=== PATIENT | male | born 1960 | race Asian ===

== ENCOUNTER 2019-04-02 14:58 | Emergency (ER) | payer BC ==
[~2019-04-02] VITALS: Ht 170.2 cm; Wt 72.6 kg
[2019-04-02 15:17] VITALS: BP_SYST 108
--- NOTE | 2019-04-02 15:41 | NUR ---
Patient to ER bed 6 to gown for evaluation. Side rails up. Assumed care.
--- NOTE | 2019-04-02 15:42 | NUR ---
Patient arrived via POV, AAOx4, and ambulatory with steady gait. C/C intermittent abdominal pain. Pain is moderate in intensity, becomes slightly worse with food intake. The patient reports having mild vomiting provoked when he has a full stomach. The patient denies any specific alleviating factors. Pain does not radiate to the back. This pain has been ongoing for the past 2 years. However, for the past months the pain has been increasing in frequency and intensity. The patient was seen by his PCP 4 months ago and was told his lab work and abdominal x-rays were within normal. Otherwise, he denies fever, chills, diarrhea, shortness of breath, chest pain, history of kidney problems or any urinary symptoms. Patient calm and cooperative pain at 7/10 currently. Will continue to follow up and monitor.
--- NOTE | 2019-04-02 15:43 | NUR ---
ER at bedside examining patient.
--- NOTE | 2019-04-02 15:54 | NUR ---
Patient taken to CT via gurney.
[2019-04-02 16:10] LABS: BASOPHILS # (AUTO) 0.1 K/uL (0.0-0.2); BASOPHILS % (AUTO) 0.7 % (0.0-2.0); EOSINOPHILS # (AUTO) 0.2 K/uL (0.0-0.4); EOSINOPHILS % (AUTO) 1.4 % (0.0-4.0); HEMATOCRIT 45.8 % (36-54); HEMOGLOBIN 15.4 g/dL (14.0-18.0); LYMPHOCYTES % (AUTO) 25.1 % (20.5-51.5); MEAN CORPUSCULAR HEMOGLOBIN 31 pg (27-31); MEAN CORPUSCULAR HGB CONC 34 % (32-36); MEAN CORPUSCULAR VOLUME 92 fL (79.0-98.0); MONOCYTES # (AUTO) 0.7 K/uL (0.0-1.0); MONOCYTES % (AUTO) 5.6 % (1.7-9.3); NEUTROPHILS % (AUTO) 67.2 % (40.0-70.0); PLATELET COUNT (AUTO) 238 K/uL (130-430); RED BLOOD CELL COUNT(AUTO) 4.97 MIL/uL (4.2-6.2); RED CELL DISTRIBUTION WIDTH 12.9 % (9.0-15.0); WHITE BLOOD COUNT (AUTO) 11.9 K/uL (4.8-10.8)
--- NOTE | 2019-04-02 16:15 | NUR ---
Patient arrived back to room via gurney. Patient in stable condition. Will continue to follow up and monitor.
[2019-04-02 16:23] LABS: CALCIUM 9.5 mg/dL (8.4-11.0); CREATININE 0.92 mg/dL (0.55-1.30); POTASSIUM 4.3 mmol/L (3.5-5.1)
[2019-04-02 16:27] LABS: TOTAL BILIRUBIN 0.8 mg/dL (0.0-1.0)
--- NOTE | 2019-04-02 17:15 | NUR ---
Patient resting comfortably. Aware we are waiting for results of labs and CT then MD to meet with him.
[2019-04-02] MEDS ORDERED: MAG HYDROX/AL HYDROX/SIMETH 30 ML, DICYCLOMINE HCL 20 MG, LIDOCAINE VISCOUS 2% 15ML (PO... PO ONE ×3 (18:15)
[2019-04-02 18:20] VITALS: BP_SYST 114
--- NOTE | 2019-04-02 18:20 | NUR ---
Patient given written and verbal discharge instructions and verbalizes understanding. ER MD discussed with patient the results and treatment provided. Patient in stable condition. ID arm band removed. Rx of Protonix given. Patient educated on pain management and to follow up with PMD. Pain Scale 5/10. Opportunity for questions provided and answered. Medication side effect fact sheet provided.
== END 2019-04-02 18:20 | disposition home or self-care (01) ==
LOC: SED 14:58
DX: R10.9 Unspecified abdominal pain (principal); E11.9 Type 2 diabetes mellitus without complications
CPT/HCPCS: 74176; 36415; 80053; 83690; 85025; 99284; J2001

== ENCOUNTER 2020-05-26 07:37 | Inpatient (IN) | payer BC, SELFPAY ==
[~2020-05-26] VITALS: Ht 172.7 cm; Wt 70.8 kg
[2020-05-26 07:37] VITALS: BP_SYST 99
[2020-05-26] MEDS ORDERED: ASPIRIN 81 MG TAB.CHEW PO ONE (07:45)
[2020-05-26 08:06] LABS: BASOPHILS # (AUTO) 0.1 K/uL (0.0-0.2); BASOPHILS % (AUTO) 0.3 % (0.0-2.0); EOSINOPHILS % (AUTO) 0.1 % (0.0-4.0); HEMATOCRIT 45.1 % (36-54); HEMOGLOBIN 15.2 g/dL (14.0-18.0); LYMPHOCYTES # (AUTO) 1.8 K/uL (1.0-5.5); LYMPHOCYTES % (AUTO) 9.1 % (20.5-51.5); MEAN CORPUSCULAR HEMOGLOBIN 30 pg (27-31); MEAN CORPUSCULAR HGB CONC 34 % (32-36); MEAN CORPUSCULAR VOLUME 90 fL (79.0-98.0); MONOCYTES # (AUTO) 1.3 K/uL (0.0-1.0); MONOCYTES % (AUTO) 6.5 % (1.7-9.3); NEUTROPHILS # (AUTO) 16.3 K/uL (1.8-7.7); PLATELET COUNT (AUTO) 216 K/uL (130-430); RED BLOOD CELL COUNT(AUTO) 4.99 MIL/uL (4.2-6.2); RED CELL DISTRIBUTION WIDTH 13.1 % (9.0-15.0); WHITE BLOOD COUNT (AUTO) 19.4 K/uL (4.8-10.8)
[2020-05-26 08:15] LABS: CALCIUM 9.2 mg/dL (8.4-11.0); CREATININE 1.18 mg/dL (0.55-1.30); POTASSIUM 4.2 mmol/L (3.5-5.1)
[2020-05-26] MEDS ORDERED: NACL 0.9% 1,000 ML IV ONE ×4 (08:15→10:15)
[2020-05-26 08:30] LABS: ALBUMIN 3.8 g/dL (3.4-4.8); TOTAL BILIRUBIN 1.3 mg/dL (0.0-1.0)
[2020-05-26] MEDS ORDERED: GLIP5TAB26 PO (08:39)
[2020-05-26] MEDS ORDERED: ATOR20TA64 PO (08:39)
[2020-05-26] MEDS ORDERED: PRO40 PO (08:39)
[2020-05-26] MEDS ORDERED: ASPI-1155 PO (08:39)
[2020-05-26] MEDS ORDERED: METF-510 PO (08:39)
[2020-05-26 08:55] LABS: CKMB RELATIVE INDEX 8.3 (0.0-2.9); CREATINE KINASE MB 287.4 ng/mL (0-3.6)
[2020-05-26 09:21] LABS: BILIRUBIN,URINE 2+ (NEGATIVE); BLOOD, URINE NEGATIVE (NEGATIVE); CLARITY/URINE CLEAR (CLEAR); COLOR,URINE YELLOW (YELLOW); GLUCOSE,URINE 3+ (NEGATIVE); KETONES,URINE 1+ (NEGATIVE); LEUKOCYTE ESTERASE ,URINE NEGATIVE (NEGATIVE); NITRITE, URINE NEGATIVE (NEGATIVE); PH,URINE 5.5 (5.0-8.0); PROTEIN URINE 2+ (NEGATIVE); UROBILINOGEN,URINE 0.2 (0.2-1.0)
[2020-05-26 09:27] LABS: BACTERIA,URINE FEW /HPF (None Seen); RBC,URINE 0-3 /HPF (0-3)
[2020-05-26 09:28] LABS: OTHER CASTS, URINE MIXED CELL CASTS 1+ /LPF (None Seen)
[2020-05-26 09:29] LABS: HYALINE CASTS, URINE 0-10 /LPF (None Seen)
[2020-05-26 09:30] LABS: MUCUS,URINE 1+ /LPF (None Seen)
[2020-05-26] MEDS ORDERED: ONDANSETRON HCL 4 MG/2 ML VIAL IVP ONE (10:00)
[2020-05-26] MEDS ORDERED: NITROGLYCERIN 0.4 MG TAB.SUBL SL PRN (10:15)
[2020-05-26] MEDS ORDERED: ONDANSETRON HCL 4 MG/2 ML VIAL ONE (10:15)
[2020-05-26] MEDS ORDERED: DEXTROSE 50% JECT 50 ML DISP.SYRIN IVP PRN (10:30)
[2020-05-26] MEDS ORDERED: INSULIN REGULAR, HUMAN 100 UNITS/ML, 10 ML VIAL (humuLIN R) SUBCUT PRN (10:30)
[2020-05-26 10:34] VITALS: BP_SYST 86
[2020-05-26] MEDS ORDERED: NALOXONE HCL 0.4 MG/ML AMP (NARCAN) IVP PRN (11:15)
[2020-05-26] MEDS ORDERED: HEPARIN SODIUM,PORCINE 5,000 UNITS/ML VIAL ONE (11:15)
[2020-05-26] MEDS ORDERED: NACL 0.9% 1,000 ML IV SCH (11:15)
[2020-05-26] MEDS ORDERED: MORPHINE 2 MG/ML INJ. SYRINGE IVP PRN (11:15)
[2020-05-26 11:29] LABS: FREE T4 (FREE THYROXINE) 1.2 ng/dl (0.8-1.5); THYROID STIMULATING HORMONE 0.6 uIu/mL (0.36-3.74)
[2020-05-26] MEDS ORDERED: METOPROLOL TARTRATE 25 MG TABLET ONE (11:29)
[2020-05-26 11:30] VITALS: BP_SYST 72
[2020-05-26] MEDS ORDERED: ONDANSETRON HCL 4 MG/2 ML VIAL IM PRN (11:30)
[2020-05-26] MEDS ORDERED: METOPROLOL TARTRATE 25 MG TABLET PO ONE (11:30)
[2020-05-26] MEDS ORDERED: HEPARIN SODIUM,PORCINE 5,000 UNITS/ML VIAL IV ONE (11:45)
[2020-05-26] MEDS ORDERED: COMMUNICATION ORDER XX ONE (11:45)
[2020-05-26] MEDS ORDERED: ATORVASTATIN 10 MG TABLET PO ONE (12:00)
[2020-05-26 12:30] VITALS: BP_SYST 86
[2020-05-27] MEDS ORDERED: ASPIRIN 81 MG TABLET(ECOTRIN) PO SCH (09:00)
[2020-05-27] MEDS ORDERED: ATORVASTATIN 10 MG TABLET PO SCH (09:00)
[2020-05-27 09:11] LABS: T4 (THYROXINE) 5.8 ug/dL (4.5-12.0)
== END 2020-05-26 12:34 | disposition short-term general hospital (02) | DRG 282 ==
LOC: SED 07:37 → SIC 09:44
PROVIDERS: ADMIT Emergency Medicine; ATTEND Emergency Medicine
DX: I21.9 Acute myocardial infarction, unspecified (principal); E11.9 Type 2 diabetes mellitus without complications; E78.5 Hyperlipidemia, unspecified; I95.9 Hypotension, unspecified; Z20.828 Contact with and (suspected) exposure to other viral communicable diseases; Z79.82 Long term (current) use of aspirin; Z79.899 Other long term (current) drug therapy; Z79.84 Long term (current) use of oral hypoglycemic drugs; Z87.891 Personal history of nicotine dependence
CPT/HCPCS: 36415; 71045; 80053; 80061; 81000-TC; 82550-TC; 82553-TC; 82962; 83880; 84436; 84439; 84443-TC; 84479; 84484; 85025; 87081; 87086; 99285; J1644; J1815; J2405; J7030